=== PATIENT | female | born 1985 | race Caucasian/White ===

== ENCOUNTER 2018-01-01 17:07 | Outpatient (CLI) | payer OTHER ==
[2018-01-01 18:16] LABS: ADD MAN DIFF? NO; BASOPHILS % 0.4 % (0.0-2.0); EOSINOPHILS # 0.2 10^3/ul (0.0-0.5); EOSINOPHILS % 1.8 % (0.0-7.0); HEMATOCRIT 32.9 % (37.0-47.0); HEMOGLOBIN 10.4 g/dl (12.0-16.0); LYMPHOCYTES # 1.9 10^3/ul (0.8-2.9); LYMPHOCYTES % 16.8 % (15.0-51.0); MEAN CORPUSCULAR HEMOGLOBIN 25.5 pg (29.0-33.0); MEAN CORPUSCULAR HGB CONC 31.6 g/dl (32.0-37.0); MEAN CORPUSCULAR VOLUME 80.6 fl (82.0-101.0); MONOCYTE # 0.6 10^3/ul (0.3-0.9); MONOCYTES % 5.2 % (0.0-11.0); NEUTROPHIL # 8.5 10^3/ul (1.6-7.5); NEUTROPHILS % 75.4 % (39.0-77.0); PLATELET COUNT 247 10^3/UL (140-415); RED BLOOD COUNT 4.08 10^6/ul (4.20-5.40); RED CELL DISTRIBUTION WIDTH 13.9 % (11.5-14.5)
[2018-01-01 18:16] LABS: WHITE BLOOD COUNT 11.3 10^3/ul (4.8-10.8)
[2018-01-01 18:26] LABS: ADD UMIC NO; UR ASCORBIC ACID NEGATIVE (NEGATIVE); UR BILIRUBIN (Dip) NEGATIVE (NEGATIVE); UR BLOOD (Dip) NEGATIVE (NEGATIVE); UR CLARITY CLEAR (CLEAR); UR COLOR YELLOW (YELLOW); UR GLUCOSE (Dip) NEGATIVE (NEGATIVE); UR KETONES (Dip) NEGATIVE (NEGATIVE); UR LEUKOCYTE ESTERASE (Dip) NEGATIVE Leu/ul (NEGATIVE); UR NITRITE (Dip) NEGATIVE (NEGATIVE); UR SPECIFIC GRAVITY (Dip) 1.026 (1.003-1.030); UR TOTAL PROTEIN (Dip) NEGATIVE (NEGATIVE); UR UROBILINOGEN (Dip) NEGATIVE (NEGATIVE)
== END 2018-01-01 21:20 | disposition home or self-care (01) ==
LOC: OBT 17:07 → L-D 17:08 → OBT 21:20
DX: O26.892 Other specified pregnancy related conditions, second trimester (principal); Z3A.24 24 weeks gestation of pregnancy; R10.2 Pelvic and perineal pain
CPT/HCPCS: 76815; 76817; 81003; 82731; 85025

== ENCOUNTER 2018-02-27 13:27 | Outpatient (CLI) | payer OTHER | END 2018-02-27 15:39 | disposition home or self-care (01) | LOC: OBT 13:27 → L-D 13:27 → OBT 15:39 | DX: O36.8130 Decreased fetal movements, third trimester, not applicable or unspecified (principal); Z3A.32 32 weeks gestation of pregnancy | CPT/HCPCS: 76818 ==

== ENCOUNTER 2018-04-01 21:02 | Outpatient (CLI) | payer OTHER | END 2018-04-02 00:02 | disposition home or self-care (01) | LOC: OBT 21:02 → L-D 21:03 | DX: O36.5930 Maternal care for other known or suspected poor fetal growth, third trimester, not applicable or unspecified (principal); Z3A.37 37 weeks gestation of pregnancy | CPT/HCPCS: 76815; 76818 ==

== ENCOUNTER 2018-04-05 00:19 | Outpatient (CLI) | payer OTHER | END 2018-04-05 03:15 | disposition home or self-care (01) | LOC: OBT 00:19 → L-D 00:22 → OBT 03:15 | DX: O36.8330 Maternal care for abnormalities of the fetal heart rate or rhythm, third trimester, not applicable or unspecified (principal); O13.3 Gestational [pregnancy-induced] hypertension without significant proteinuria, third trimester; Z3A.37 37 weeks gestation of pregnancy | CPT/HCPCS: 76818 ==

== ENCOUNTER 2018-04-07 09:30 | Inpatient (IN) | payer OTHER ==
[2018-04-07] MEDS ORDERED: LACTATED RINGER'S 1,000 ML IV (11:58)
[2018-04-07] MEDS ORDERED: OXYTOCIN 30 UNITS/LR 500 ML IV ×2 (12:00)
[2018-04-07] MEDS ORDERED: LIDOCAINE 1% (MPF) 30 ML INJ INJ (12:00)
[2018-04-07] MEDS ORDERED: BUTORPHANOL 1 MG INJ IV (12:00)
[2018-04-07] MEDS ORDERED: CARBOPROST 250 MCG INJ IM (12:00)
[2018-04-07] MEDS ORDERED: MISOPROSTOL 200 MCG TAB PR (12:00)
[2018-04-07] MEDS ORDERED: METHYLERGONOVINE 0.2 MG INJ IM (12:00)
[2018-04-07] MEDS ORDERED: IBUPROFEN 600 MG TAB PO (12:00)
[2018-04-07] MEDS ORDERED: BUTORPHANOL 2 MG INJ IV (12:00)
[2018-04-07 12:48] LABS: ADD MAN DIFF? NO
[2018-04-07 12:50] LABS: WHITE BLOOD COUNT 10.5 10^3/ul (4.8-10.8)
[2018-04-07 12:50] LABS: BASOPHILS % 0.3 % (0.0-2.0); EOSINOPHILS # 0.1 10^3/ul (0.0-0.5); HEMATOCRIT 34.4 % (37.0-47.0); LYMPHOCYTES # 2.1 10^3/ul (0.8-2.9); LYMPHOCYTES % 20.2 % (15.0-51.0); MEAN CORPUSCULAR HEMOGLOBIN 25.4 pg (29.0-33.0); MEAN CORPUSCULAR VOLUME 79.4 fl (82.0-101.0); MONOCYTE # 0.6 10^3/ul (0.3-0.9); MONOCYTES % 5.4 % (0.0-11.0); NEUTROPHIL # 7.6 10^3/ul (1.6-7.5); NEUTROPHILS % 72.7 % (39.0-77.0); PLATELET COUNT 296 10^3/UL (140-415); RED BLOOD COUNT 4.33 10^6/ul (4.20-5.40)
[2018-04-07] MEDS: LACTATED RINGER'S 1,000 ML IV ×2 (13:08→15:50)
[2018-04-07 13:10] LABS: INR 0.93; PROTIME 12.5 Sec (11.9-14.9)
[2018-04-07 13:11] LABS: PARTIAL THROMBOPLASTIN TIME 31.4 Sec (23.0-35.0)
[2018-04-07] MEDS: MISOPROSTOL 50 MCG CAPSULE VAG ×2 (14:32→18:35)
[2018-04-07 14:55] LABS: RAPID PLASMA REAGIN NONREACTIVE (NR)
[2018-04-07 15:03] LABS: ALBUMIN 3.5 g/dl (3.3-4.9); ALBUMIN/GLOBULIN RATIO 1.09; ALKALINE PHOSPHATASE 113 IU/L (42-121); BILIRUBIN,INDIRECT 0.1 mg/dl (0-1.1); BILIRUBIN,TOTAL 0.1 mg/dl (0.2-1.3); TOTAL PROTEIN 6.7 g/dl (6.1-8.1); URIC ACID 2.7 mg/dl (3.1-7.9)
[2018-04-07 15:15] LABS: ALANINE AMINOTRANSFERASE 18 IU/L (13-69); ANION GAP 9 (5-13); ASPARTATE AMINO TRANSFERASE 25 IU/L (15-46); BLOOD UREA NITROGEN 13 mg/dl (7-20); CARBON DIOXIDE 24 mmol/L (21-31); CHLORIDE 105 mmol/L (97-110); CREATININE 0.48 mg/dl (0.44-1.00); Estimated GFR > 60 mL/min (>60); GLUCOSE 90 mg/dl (70-220); POTASSIUM 4.3 mmol/L (3.5-5.1); SODIUM 138 mmol/L (135-144)
[2018-04-07 16:14] LABS: ADD UMIC YES; UR ASCORBIC ACID NEGATIVE (NEGATIVE); UR BACTERIA FEW /HPF (NONE SEEN); UR BILIRUBIN (Dip) NEGATIVE (NEGATIVE); UR BLOOD (Dip) NEGATIVE (NEGATIVE); UR CLARITY CLEAR (CLEAR); UR COLOR YELLOW (YELLOW); UR GLUCOSE (Dip) NEGATIVE (NEGATIVE); UR KETONES (Dip) TRACE mg/dL (NEGATIVE); UR LEUKOCYTE ESTERASE (Dip) 1+ Leu/ul (NEGATIVE); UR NITRITE (Dip) NEGATIVE (NEGATIVE); UR RBC 2 /HPF (0-5); UR SPECIFIC GRAVITY (Dip) 1.017 (1.003-1.030); UR SQUAMOUS EPITHELIAL CELL FEW /HPF (FEW); UR TOTAL PROTEIN (Dip) NEGATIVE (NEGATIVE); UR UROBILINOGEN (Dip) NEGATIVE (NEGATIVE); UR WBC 1 /HPF (0-5)
[2018-04-08] MEDS: LACTATED RINGER'S 1,000 ML IV ×5 (01:06→19:43)
[2018-04-08] MEDS ORDERED: FENTAnyl 2MCG/ML-ROPIV 0.2% 100 ML (01:51)
[2018-04-08] MEDS ORDERED: NALOXONE (0.4 MG/ML) INJ IV (02:00)
[2018-04-08] MEDS: FENTAnyl 2MCG/ML-ROPIV 0.2% 100 ML BAG EPI ×3 (02:59→21:07)
[2018-04-08] MEDS: ONDANSETRON 4 MG INJ IV (03:14)
[2018-04-08] MEDS: MISOPROSTOL 50 MCG CAPSULE VAG ×2 (03:41→08:02)
[2018-04-08] MEDS: OXYTOCIN 30 UNITS/LR 500 ML IV (12:53)
[2018-04-09] MEDS: ACETAMINOPHEN 500 MG TAB PO (01:43)
[2018-04-09] MEDS ORDERED: DIPHENHYDRAMINE 50 MG INJ IM (02:00)
[2018-04-09] MEDS ORDERED: DIPHENHYDRAMINE 50 MG INJ IV ×2 (02:13→05:30)
[2018-04-09] MEDS: DIPHENHYDRAMINE 50 MG INJ IV (02:25)
[2018-04-09] MEDS: OXYTOCIN 30 UNITS/LR 500 ML IV (05:03)
[2018-04-09] MEDS: LACTATED RINGER'S 1,000 ML IV* ×3 (05:09→20:24)
[2018-04-09] MEDS ORDERED: OXYTOCIN 30 UNITS/LR 500 ML IV (05:30)
[2018-04-09] MEDS ORDERED: ONDANSETRON 4 MG TAB PO (05:30)
[2018-04-09] MEDS ORDERED: CARBOPROST 250 MCG INJ IM (05:30)
[2018-04-09] MEDS ORDERED: SENNA/DOCUSATE NA (8.6MG/50MG) TAB PO (05:30)
[2018-04-09] MEDS ORDERED: MISOPROSTOL 200 MCG TAB PR (05:30)
[2018-04-09] MEDS ORDERED: DIBUCAINE 1% 30 GM OINT TOP (05:30)
[2018-04-09] MEDS ORDERED: ONDANSETRON 4 MG INJ IV (05:30)
[2018-04-09] MEDS ORDERED: MAGNESIUM HYDROXIDE 30ML CUP PO (05:30)
[2018-04-09] MEDS ORDERED: HYDROCODONE/APAP (5/325) TAB PO ×2 (05:30)
[2018-04-09] MEDS ORDERED: ACETAMINOPHEN 325 MG TAB PO ×2 (05:30)
[2018-04-09] MEDS ORDERED: DIPHENHYDRAMINE 25 MG CAP PO (05:30)
[2018-04-09] MEDS ORDERED: METHYLERGONOVINE 0.2 MG INJ IM (05:30)
[2018-04-09] MEDS: IBUPROFEN 800 MG TAB PO ×3 (06:58→17:24)
[2018-04-09] MEDS: BENZOCAINE 20% 56 ML SPRAY TOP (08:32)
[2018-04-09] MEDS: LANOLIN HPA 1 PKT TOP (08:33)
[2018-04-09 10:00] LABS: HEPATITIS B SURFACE ANTIGEN NEGATIVE (NEGATIVE)
[2018-04-10] MEDS: IBUPROFEN 800 MG TAB PO ×5 (00:28→23:51)
[2018-04-10 07:56] LABS: ADD MAN DIFF? NO
[2018-04-10 07:58] LABS: WHITE BLOOD COUNT 10.1 10^3/ul (4.8-10.8)
[2018-04-10 07:58] LABS: BASOPHILS % 0.3 % (0.0-2.0); EOSINOPHILS # 0.2 10^3/ul (0.0-0.5); EOSINOPHILS % 2.2 % (0.0-7.0); HEMATOCRIT 30.4 % (37.0-47.0); HEMOGLOBIN 9.7 g/dl (12.0-16.0); LYMPHOCYTES # 2.2 10^3/ul (0.8-2.9); LYMPHOCYTES % 21.8 % (15.0-51.0); MEAN CORPUSCULAR HEMOGLOBIN 25.4 pg (29.0-33.0); MEAN CORPUSCULAR HGB CONC 31.9 g/dl (32.0-37.0); MEAN CORPUSCULAR VOLUME 79.6 fl (82.0-101.0); MEAN PLATELET VOLUME 10.4 fl (7.4-10.4); MONOCYTE # 0.6 10^3/ul (0.3-0.9); MONOCYTES % 6.3 % (0.0-11.0); NEUTROPHIL # 6.9 10^3/ul (1.6-7.5); PLATELET COUNT 234 10^3/UL (140-415); RED BLOOD COUNT 3.82 10^6/ul (4.20-5.40); RED CELL DISTRIBUTION WIDTH 15.2 % (11.5-14.5)
[2018-04-11] MEDS: IBUPROFEN 800 MG TAB PO (05:52)
[2018-04-11] MEDS: MEASLES,MUMPS,RUBELLA VACCINE INJ SC* (09:07)
[2018-04-11] MEDS: VARICELLA VACCINE LIVE/PF 1,350 UNIT/0.5 ML ML SC* (09:08)
[2018-04-11] MEDS: DIPHTH/TET/ACEL PERTUSS (ADULT) 0.5 ML VIAL IM* (10:37)
== END 2018-04-11 13:14 | disposition home or self-care (01) | DRG 807 ==
LOC: L-D 09:30 → PP1 04-09 06:28 → L-D 12:12
PROC: 10E0XZZ Delivery of Products of Conception, External Approach (ICD-10-PCS; principal; 2018-04-09)
PROC: 3E033VJ Introduction of Other Hormone into Peripheral Vein, Percutaneous Approach (ICD-10-PCS; 2018-04-09)
DX: O14.13 Severe pre-eclampsia, third trimester (principal); Z37.0 Single live birth; O36.5930 Maternal care for other known or suspected poor fetal growth, third trimester, not applicable or unspecified; O99.213 Obesity complicating pregnancy, third trimester; E66.01 Morbid (severe) obesity due to excess calories; Z3A.37 37 weeks gestation of pregnancy
CPT/HCPCS: 62319; 80053; 81001; 84560; 85025; 85384; 85610; 85730; 86592; 86850; 86900; 86901; 87340; 90715

== ENCOUNTER 2018-09-22 12:30 | Emergency (ER) | payer OTHER ==
[2018-09-22 13:33] LABS: ADD UMIC YES; UR ASCORBIC ACID NEGATIVE (NEGATIVE); UR BACTERIA FEW /HPF (NONE SEEN); UR BILIRUBIN (Dip) NEGATIVE (NEGATIVE); UR BLOOD (Dip) 2+ mg/dL (NEGATIVE); UR CLARITY SLIGHTLY CLOUDY (CLEAR); UR COLOR YELLOW (YELLOW); UR GLUCOSE (Dip) NEGATIVE (NEGATIVE); UR KETONES (Dip) NEGATIVE (NEGATIVE); UR LEUKOCYTE ESTERASE (Dip) TRACE Leu/ul (NEGATIVE); UR MUCUS FEW /HPF (NONE SEEN); UR NITRITE (Dip) NEGATIVE (NEGATIVE); UR RBC 16 /HPF (0-5); UR SPECIFIC GRAVITY (Dip) 1.028 (1.003-1.030); UR SQUAMOUS EPITHELIAL CELL MODERATE /HPF (FEW); UR TOTAL PROTEIN (Dip) NEGATIVE (NEGATIVE); UR UROBILINOGEN (Dip) NEGATIVE (NEGATIVE); UR WBC 3 /HPF (0-5)
== END 2018-09-22 14:25 | disposition home or self-care (01) ==
LOC: FTE 12:30
DX: R10.2 Pelvic and perineal pain (principal)
CPT/HCPCS: 76830; 76856; 81001; 84703; 99284-25